=== PATIENT | male | born 1980 | race Caucasian/White ===

== ENCOUNTER 2018-04-30 20:30 | Outpatient (CLI) | payer OTHER | END 2018-04-30 20:31 | disposition home or self-care (01) | LOC: SLEEPLAB 20:30 | PROVIDERS: ATTEND Nurse Practitioner Family | DX: G47.33 Obstructive sleep apnea (adult) (pediatric) (principal); R53.83 Other fatigue; R51 Headache; E66.9 Obesity, unspecified; K21.9 Gastro-esophageal reflux disease without esophagitis; F32.9 Major depressive disorder, single episode, unspecified; I10 Essential (primary) hypertension | CPT/HCPCS: 95811 ==

== ENCOUNTER 2019-02-21 16:18 | Outpatient (CLI) | payer OTHER ==
--- NOTE | 2019-02-21 16:36 | RAD ---
Exam: 3 views thoracic spine HISTORY: Pain. COMPARISON: None FINDINGS: AP, lateral and swimmer's view of the thoracic spine demonstrate preservation of vertebral body height. No fracture. Disc space heights are preserved. Minimal osteophyte formation. IMPRESSION: Unremarkable 3 views thoracic spine.
--- NOTE | 2019-02-21 16:39 | RAD ---
EXAM: XR Lumbar Spine 2 Or 3 View PROVIDED CLINICAL HISTORY: Low back pain COMPARISON: None FINDINGS: Osteophytes are seen anteriorly at multiple levels. The vertebral body heights are within normal limi ts, and there is no fracture or subluxation involving the lumbar spine. There is mild loss of height of the L5-S1 intervertebral disc space. The T12 ribs are hypoplastic. IMPRESSION: Mild degenerative changes in lumbar spine without fracture or subluxation.
== END 2019-02-21 16:19 | disposition home or self-care (01) ==
LOC: RAD-FRANK 16:18
PROVIDERS: ATTEND Nurse Practitioner Family
DX: M54.5 Low back pain (principal); S39.92XA Unspecified injury of lower back, initial encounter; M54.6 Pain in thoracic spine; M47.816 Spondylosis without myelopathy or radiculopathy, lumbar region
CPT/HCPCS: 72072; 72100

== ENCOUNTER 2019-03-05 16:30 | Outpatient (CLI) | payer OTHER | END 2019-03-05 16:31 | disposition home or self-care (01) | LOC: CTENTCT 16:30 | PROVIDERS: ATTEND Otolaryngology Plastic Surgery within the Head & Neck | DX: J32.9 Chronic sinusitis, unspecified (principal) | CPT/HCPCS: 70486 ==

== ENCOUNTER 2019-03-20 08:58 | Day surgery (SDC) | payer OTHER ==
[2019-03-19 16:25] VITALS: BMI 30.7
[2019-03-20] MEDS ORDERED: Oxymetazoline HCl 0.05% ( 15 ML ) ONE ×2 (10:05→10:35)
[2019-03-20] MEDS ORDERED: Bacitracin Zinc Ointment 30 gm TUBE ONE (10:35)
[2019-03-20] MEDS ORDERED: Fentanyl 100 MCG/2 ML VIAL ONE ×2 (10:37→12:44)
[2019-03-20] MEDS ORDERED: Morphine 4 MG/ML VIAL ONE (10:38)
[2019-03-20] MEDS ORDERED: Promethazine HCl 25 MG/ML VIAL ONE (13:06)
[2019-03-20] MEDS ORDERED: Hydrocodone-Acetamin 15 ML UDCUP ONE (14:49)
[2019-03-20] MEDS ORDERED: Ondansetron PF 4 MG/2 ML Vial ONE (15:49)
[2019-03-20] MEDS ORDERED: Lidocaine 1% PF 5 ML VIAL ONE (15:49)
[2019-03-20] MEDS ORDERED: Rocuronium Bromide 10 MG/ML (10ML VIAL) ONE (15:49)
[2019-03-20] MEDS ORDERED: Dexamethasone 20 MG/5 ML VIAL ONE (15:49)
[2019-03-20] MEDS ORDERED: Esmolol 100 MG/10 ML VIAL ONE (15:49)
[2019-03-20] MEDS ORDERED: Glycopyrrolate 0.2 MG/ML 5 ML SYRINGE ONE (15:49)
[2019-03-20] MEDS ORDERED: PROPOFOL 200 MG/20 ML VIAL ONE (15:49)
[2019-03-20] MEDS ORDERED: Morphine 2 MG/ML SYRINGE ONE (15:57)
[2019-03-20] MEDS ORDERED: Dexamethasone 4 mg/ml Vial ONE (17:10)
--- NOTE | 2019-03-21 11:06 | OP ---
DATE OF PROCEDURE: 03/20/2019 PREOPERATIVE DIAGNOSES: 1. Chronic rhinosinusitis. 2. Nasal septal deviation. 3. Bilateral inferior turbinate hypertrophy. 4. Chronic adenotonsillitis. 5. Adenotonsillar hypertrophy. 6. Obstructive sleep apnea. POSTOPERATIVE DIAGNOSES: 1. Chronic rhinosinusitis. 2. Nasal septal deviation. 3. Bilateral inferior turbinate hypertrophy. 4. Chronic adenotonsillitis. 5. Adenotonsillar hypertrophy. 6. Obstructive sleep apnea. PROCEDURES: 1. Bilateral endoscopic sinus surgery, total ethmoidectomies. 2. Bilateral endoscopic sinus surgery, maxillary antrostomies. 3. Bilateral endoscopic sinus surgery, frontal sinusotomies. 4. Nasal septoplasty. 5. Bilateral inferior turbinate submucosal resection. 6. Tonsillectomy and adenoidectomy. ESTIMATED BLOOD LOSS: 50 mL. COMPLICATIONS: None. ANESTHESIA: GETA. PROCEDURE IN DETAIL: TONSILLECTOMY AND ADENOIDECTOMY: After consent was obtained, the patient was identified, brought to the operating room, and placed on the operating table in the supine position. General endotracheal anesthesia and intravenous access were obtained and we proceeded with positioning the patient for oropharyngeal surgery. Oropharyngeal exposure was obtained with a Shailesh-Byron mouth gag after a head drape was placed and secured with a towel clip. The Shailesh-Byron mouth gag was then suspended from the Elkins tray and palatal elevation was achieved with a red rubber catheter. The right tonsil was addressed first. We used a curved Allis to grasp the tonsil and retract it medially as an anterior pillar incision was made. The retrotonsillar fascial plane was then established and blunt dissection was performed with the suction cautery. Blood vessels were anticipated, identified, and cauterized as they were encountered. Ultimately, dissection was carried to the posterior tonsillar pillar mucosa which was incised hemostatically, as well as the base of tongue connection. The tonsil was then passed off as a specimen and bleeding points within the tonsillar bed were cauterized under direct visualization. We subsequently turned our attention to the contralateral side, where using a similar technique, a near identical procedure was performed. Again, the tonsil was grasped and retracted medially with a curved Allis. The retrotonsillar fascial plane was established and while the anterior pillar was retracted medially. The hemostatic blunt dissection of the tonsil with a suction cautery was performed with blood vessels anticipated, identified, and cauterized as they were encountered. Again, dissection continued to the base of tongue and posterior tonsillar pillar mucosa which was incised in a hemostatic fashion. The tonsillar beds were then carefully inspected and bleeding points were identified and cauterized with a suction cautery. After this portion of the procedure, hemostasis was completely obtained. Under direct mirror visualization, we visualized the adenoid pad. Under direct mirror visualization, we removed the bulk of the adenoid tissue with the adenoid curette. We then packed the nasopharynx for an appropriate period of time with Uey-[id number] tonsillar sponges. After a period of observation, we removed the pack. Under indirect mirror visualization, we obtained hemostasis and vaporization of residual adenoid tissue with electrocautery. The patient's oral cavity was copiously irrigated with iced saline and subsequently suctioned. After completion of the procedure, the nasal cavity and oropharynx were irrigated and suctioned as were the gastric contents. The patient was then awakened and transferred to the recovery room where the patient remained in stable condition prior to discharge to Day Stay. NASAL SEPTOPLASTY AND BILATERAL INFERIOR TURBINATE SUBMUCOSAL RESECTION: Patient was taken to the operating room and placed supine on the table. General endotracheal anesthesia was obtained by the anesthesia staff. Tube was secured in the left lower lip. Patient was then placed in the beach chair position, and Afrin pledgets were placed in the nasal cavity. Injections of 1% lidocaine with 1:100,000 epinephrine were made into the nasal septum as well as the inferior turbinates. Patient was then prepped and draped in standard surgical fashion for nasal surgery. Following this, the Afrin pledgets were removed. A [place] incision was made on the left nasal septum. Submucoperichondrial dissection was performed. The deviated portions of the septum included portions of the cartilage and the bony septum. These isolated areas were removed using 3 cutting rongeurs. There was noted to be a large dorsal and caudal strut, left intact for support of the nose. The mucoperichondrial flaps were then reapproximated using a 4-0 gut stitch. Any straight pieces of cartilage were crushed prior to this and placed between the mucoperichondrial flaps. Following this, the inferior turbinates were then punctured with a submucosal coblation wand, and submucosal coblations were performed of multiple areas of the inferior portion of the anterior inferior turbinate. Please note that microdebrider was used to submucosally resect the anterior and inferior portions of the inferior turbinates bilaterally. Following this, a 0-degree endoscope was advanced in the middle meatus. The middle turbinates were gently medialized using a Immaculata elevator bilaterally. Following this, the uncinate process was identified bilaterally and was anteriorly fractured using a ball-ended probe. Following this, the uncinate was removed using the 0-degree microdebrider and the up-biting Blakesley forceps bilaterally. Following this, the natural maxillary sinus ostia was identified using a ball-ended probe and was then widened using the curved microdebrider and straight Blakesley forceps bilaterally. Following this, the ethmoidal bulla was identified and was punctured on its medial and inferior aspect using the microdebrider bilaterally. Following this, the ethmoidal bulla was removed using the 0-degree microdebrider and the up-biting Blakesley forceps. Following this, the grand lamella was identified and was then punctured into the posterior ethmoidal cells, working from posterior to anterior the ethmoidal cells were opened in a mucosal sparing technique. Following this, the frontal sinus ostia was identified using the 45-degree scope and the 40-degree microdebrider blade was used to further open the frontal sinus recess and frontal sinus ostia bilaterally. Following this, nasal cavity was irrigated. Gel packs were placed within the middle meatus. Linda splints were placed and secured. The patient tolerated the procedure well. Job ID: [id number]
== END 2019-03-20 18:25 | disposition home or self-care (01) ==
LOC: SDC 08:58
PROVIDERS: ATTEND Otolaryngology Plastic Surgery within the Head & Neck
PROC: 09SM0ZZ Reposition Nasal Septum, Open Approach (ICD-10-PCS; principal; 2019-03-20)
PROC: 0CTPXZZ Resection of Tonsils, External Approach (ICD-10-PCS; principal; 2019-03-20)
PROC: 09TL7ZZ Resection of Nasal Turbinate, Via Natural or Artificial Opening (ICD-10-PCS; principal; 2019-03-20)
PROC: 09TU8ZZ Resection of Right Ethmoid Sinus, Via Natural or Artificial Opening Endoscopic (ICD-10-PCS; principal; 2019-03-20)
PROC: 0CTQXZZ Resection of Adenoids, External Approach (ICD-10-PCS; principal; 2019-03-20)
PROC: 099T8ZZ Drainage of Left Frontal Sinus, Via Natural or Artificial Opening Endoscopic (ICD-10-PCS; principal; 2019-03-20)
PROC: 09TV8ZZ Resection of Left Ethmoid Sinus, Via Natural or Artificial Opening Endoscopic (ICD-10-PCS; principal; 2019-03-20)
PROC: 099Q8ZZ Drainage of Right Maxillary Sinus, Via Natural or Artificial Opening Endoscopic (ICD-10-PCS; principal; 2019-03-20)
PROC: 099R8ZZ Drainage of Left Maxillary Sinus, Via Natural or Artificial Opening Endoscopic (ICD-10-PCS; principal; 2019-03-20)
PROC: 099S8ZZ Drainage of Right Frontal Sinus, Via Natural or Artificial Opening Endoscopic (ICD-10-PCS; principal; 2019-03-20)
DX: J32.8 Other chronic sinusitis (principal); J34.2 Deviated nasal septum; J34.3 Hypertrophy of nasal turbinates; J35.03 Chronic tonsillitis and adenoiditis; G47.33 Obstructive sleep apnea (adult) (pediatric); I10 Essential (primary) hypertension; F32.9 Major depressive disorder, single episode, unspecified; M42.00 Juvenile osteochondrosis of spine, site unspecified; F17.290 Nicotine dependence, other tobacco product, uncomplicated; Z79.899 Other long term (current) drug therapy; Z88.1 Allergy status to other antibiotic agents
CPT/HCPCS: 88304; 93005; 93010; J1100; J2001; J2270; J2405; J2550; J2704; J3010

== ENCOUNTER 2019-05-29 10:30 | Outpatient (CLI) | payer OTHER ==
--- NOTE | 2019-05-29 10:56 | RAD ---
XR Hip Lt 2-3 View HISTORY: New onset left hip pain, low back pain FINDINGS: No fracture or dislocation is identified. No significant arthritic changes are seen.
== END 2019-05-29 10:31 | disposition home or self-care (01) ==
LOC: TBSIIMAG 10:30
PROVIDERS: ATTEND Neurological Surgery
DX: M54.5 Low back pain (principal)

== ENCOUNTER 2024-09-02 13:22 | Outpatient (CLI) | payer BC | END 2024-09-02 13:23 | disposition home or self-care (01) | LOC: BICRAD 13:22 | PROVIDERS: ATTEND Family Medicine | DX: M25.552 Pain in left hip (principal) ==